=== PATIENT | female | born 1960 | race Caucasian/White ===

== ENCOUNTER 2021-01-06 16:03 | Outpatient (CLI) | payer OTHER, SELFPAY ==
--- NOTE | ~2021-01-06 | MM_ITS ---
EXAMINATION: MM screening [facility] BI w ethel HISTORY: Screening mammogram TECHNIQUE: Craniocaudal and mediolateral oblique 3-D tomosynthesis images were obtained and synthetic 2-D images were generated. CAD analysis was submitted and interpreted. COMPARISON: 04/24/2013, 06/01/2011 bilateral digital screening mammogram examinations BREAST PARENCHYMAL COMPOSITION: There are scattered areas of fibroglandular density. FINDINGS: There is asymmetry in the subareolar area of the right breast. Diagnostic right mammogram a nd right breast ultrasound examination are recommended. Otherwise there is no evidence of suspicious mass, calcification, or architectural distortion to sugg est malignancy in either breast. There has been no other suspicious interval change. IMPRESSION: 1. Right subareolar asymmetry 2. Diagnostic right mammogram and right breast ultrasound examination are recommended. BI-RADS Category 0: Incomplete: Needs additional imaging evaluation. Reviewed, dictated and finalized at location A. IMPRESSION: 1. Right subareolar asymmetry 2. Diagnostic right mammogram and right breast ultrasound examination are recom mended. BI-RADS Category 0: Incomplete: Needs additional imaging evaluation.
== END 2021-01-06 16:04 | disposition home or self-care (01) ==
LOC: ANHIMG 16:06
PROVIDERS: PCP Family Medicine; Visit Provider Family Medicine
DX: Z12.31 Encounter for screening mammogram for malignant neoplasm of breast (principal); R92.8 Other abnormal and inconclusive findings on diagnostic imaging of breast
CPT/HCPCS: 77063; 77067

== ENCOUNTER 2021-02-05 11:57 | Outpatient (CLI) | payer OTHER, SELFPAY ==
--- NOTE | ~2021-02-05 | MMUS_ITS ---
EXAMINATION: MM diagnostic mammo unilat RT, US breast RT complete HISTORY: Right subareolar mammographic asymmetry TECHNIQUE: Additional 3-D tomosynthesis images of the right breast were performed and synthetic 2-D i mages were generated. CAD analysis was submitted and interpreted. High resolution complete right huyen st ultrasound was performed. COMPARISON: 01/06/2021, 04/24/2013 bilateral digital screening mammogram FINDINGS: MAMMOGRAPHIC FINDINGS: No suspicious mass or architectural distortion is evident. No significant new or developing density s gustavo 04/24/2013 is detected. ULTRASOUND: No suspicious mass or shadowing is evident. IMPRESSION: 1. No mammographic evidence of malignancy 2. Routine mammographic screening BI-RADS Category 1: Negative Reviewed, dictated and finalized at location A. IMPRESSION: 1. No mammographic evidence of malignancy 2. Routine mammographic screening BI-RADS Category 1: Negative
== END 2021-02-05 11:58 | disposition home or self-care (01) ==
LOC: ANHIMG 11:59
PROVIDERS: PCP Family Medicine; Visit Provider Family Medicine
DX: R92.8 Other abnormal and inconclusive findings on diagnostic imaging of breast (principal)
CPT/HCPCS: 76641; 77065

== ENCOUNTER → 2021-10-15 16:14 | Outpatient (CLI) | payer OTHER, SELFPAY ==
--- NOTE | ~2021-10-15 | US_ITS ---
US soft tissue head and neck INDICATION: Palpable thyroid nodule TECHNIQUE: Real-time sonographic images of the thyroid gland were obtained. COMPARISON: No prior studies for comparison. FINDINGS: The right thyroid lobe measures 5.5 x 1.8 x 1.7 cm. The left thyroid lobe measures 5.5 x 2 .9 x 1.8 cm. In the area of palpable concern in the left neck there is a 3.2 x 2.5 x 2.4 cm mostly so lid hypoechoic mass which is wider than tall with smooth margins and no definite calcifications, pj gory TR 4. Normal vascular flow is present. IMPRESSION: 1. Solid left thyroid mass measuring up to 3.2 cm. Ultrasound-guided fine-needle aspiration biopsy r ecommended. Reviewed, dictated and finalized at location A. A PROCESSOR IMPRESSION: 1. Solid left thyroid mass measuring up to 3.2 cm. Ultrasound-guided fine-need le aspiration biopsy recommended.
== END ==
PROVIDERS: PCP Family Medicine; Visit Provider Family Medicine
DX: R22.1 Localized swelling, mass and lump, neck (principal); E07.9 Disorder of thyroid, unspecified
CPT/HCPCS: 76536

== ENCOUNTER 2021-12-13 14:15 | Emergency (ER) | payer OTHER, SELFPAY ==
--- NOTE | ~2021-12-13 | XR_ITS ---
EXAM: XR forearm LT 2V HISTORY: dog bite, LACERATION/WOUND MID FOREARM COMPARISON: None available FINDINGS: Decreased mineralization. No fracture or dislocation. No lytic or blastic lesion. Joint sp aces maintained. No erosion or periosteal change. Soft tissue defect at the anterolateral mid forearm . IMPRESSION: No acute osseous finding in the left forearm. Reviewed, dictated and finalized at location K.
[2021-12-13 14:16] VITALS: BP 143/90; PULSE 98; RESP 16; TEMP 36.6; O2SAT 97
--- NOTE | 2021-12-13 16:24 | ED.ANIMALBIT ---
HPI - Animal Bite General Chief Complaint: Animal Bite Stated Complaint: Dog Bite Time Seen by Provider: 12/13/21 15:12 Source: patient Mode of arrival: ambulatory Limitations: no limitations History of Present Illness HPI narrative: This is a 61 year old female that presents to the ER for dog bite to the left forearm sustained just prior to arrival. Reports she was walking on the trail when she was suddenly bit by another women's dog. Reports she sustained a laceration to the left forearm. Reports bleeding and pain. She is up to date on tetanus. The dog is also up to date on it's vaccinations. Denies decreased ROM or numbness. Related Data Home Medications Medication Instructions Recorded Confirmed levonorgestrel 20 mcg/24 hours (7 INTRAUTERINE 10/07/21 10/07/21 yrs) 52 mg intrauterine device Allergies Allergy/AdvReac Type Severity Reaction Status Date / Time iodine Allergy Unknown contrast Verified 12/13/21 14:29 nitrofurantoin Allergy Unknown allergic Verified 12/13/21 14:29 Penicillins Allergy Unknown Skin Verified 12/13/21 14:29 Reaction phenazopyridine Allergy Unknown allergic Verified 12/13/21 14:29 Sulfa (Sulfonamide Allergy Unknown Nausea Verified 12/13/21 14:29 Antibiotics) sulfamethizole Allergy Unknown Nausea Verified 12/13/21 14:29 sulfanilamide Allergy Unknown Unknown Verified 12/13/21 14:29 Review of Systems Review of Systems: CONSTITUTIONAL: Denies fever SKIN: Reports laceration NEUROLOGIC: Denies numbness All systems reviewed & are unremarkable except as noted in HPI and below PMFSH Past Medical History Medical History Herpes zoster without complication Kidney stone Solitary lung nodule Family History Family History Father Diabetes mellitus Family history of cardiovascular disease Family history of emphysema Mother Family history of malignant neoplasm of uterus Father Hypertension Family history of diabetes mellitus in first degree relative Family history of emphysema Family history of heart disease in male family member before age 55 Sibling Hypertension Mother Family history of malignant neoplasm of uterus Social History Social History Alcohol intake: current Exam Narrative: GENERAL: Well-appearing, well-nourished, and in no acute distress. HEAD: Normocephalic, atraumatic. EYES: EOMI. EXTREMITIES: Normal range of motion. No edema. Left forearm with 4cm linear laceration into subcutaneous tissue. Also with two additional 1cm puncture wounds SKIN: Warm, dry, no rash. NEURO: No focal deficits. Alert and oriented x3. PSYCH: Normal mood and affect Course Vital Signs Vital signs: Vital Signs Temperature 97.9 F 12/13/21 14:16 Pulse Rate 98 12/13/21 14:16 Respiratory Rate 16 12/13/21 14:16 Blood Pressure 143/90 H 12/13/21 14:16 Pulse Oximetry 97 12/13/21 14:16 Temperature 97.9 F 12/13/21 14:16 Pulse Rate 98 12/13/21 14:16 Respiratory Rate 16 12/13/21 14:16 Blood Pressure 143/90 H 12/13/21 14:16 Pulse Oximetry 97 12/13/21 14:16 Procedures Laceration Laceration 1: Date: 12/13/21 Time: 17:39 Site: upper extremity Side (If applicable): left Size (cm): 4 Description: linear Depth: simple, single layer Pre-repair: irrigated extensively ====== Skin Level ====== Skin layer closed with: steri strips ====== Subcutaneous Layer ====== ====== Muscle Layer ====== ====== Tendon Layer ====== MDM - Animal Bite MDM Narrative Medical decision making narrative: Patient presents to the emergency department after a dog bite to the left forearm sustained just prior to arrival. Her wound was thoroughly irrigated and puncture wounds were covered with antibiotic ointment and bandag
[2021-12-13] MEDS: DOXYCYCLINE HYCLATE 100 MG TABLET PO (17:42)
[2021-12-13] MEDS: CLINDAMYCIN HCL 150 MG CAP 300 MG PO (17:42)
== END 2021-12-13 17:52 | disposition home or self-care (01) ==
PROVIDERS: Emergency Provider Emergency Medicine; PCP Family Medicine
DX: S51.852A Open bite of left forearm, initial encounter (principal); Z88.0 Allergy status to penicillin; Z88.2 Allergy status to sulfonamides; Z91.041 Radiographic dye allergy status; Z87.442 Personal history of urinary calculi; W54.0XXA Bitten by dog, initial encounter
CPT/HCPCS: 73090; 99283; A9270

== ENCOUNTER → 2022-10-02 10:51 | Outpatient (CLI) | payer OTHER, SELFPAY ==
--- NOTE | ~2022-10-02 | US_ITS ---
US thyroid INDICATION: Thyroid nodule follow-up. Reported interval benign fine-needle aspiration biopsy. TECHNIQUE: Real-time sonographic images of the thyroid gland were obtained. COMPARISON: 10/15/2021 FINDINGS: The right thyroid lobe measures 5.2 x 1.9 x 1.7 cm. The left thyroid lobe measures 5.2 x 3 .2 x 3.1 cm. In the left lobe there is a complex thyroid mass measuring 3.1 x 3 x 2.7 cm which is hadley ost completely solid, isoechoic, wider than tall, smoothly marginated without internal calcifications , TR 3. No other discrete masses are identified. IMPRESSION: 1. No significant change to complex left thyroid mass measuring up to 3.1 cm maximum dimension. This was reportedly recently biopsied. Biopsy proven benign. Consider follow-up ultrasound in 12 months. Reviewed, dictated and finalized at location A. ADVISER IMPRESSION: 1. No significant change to complex left thyroid mass measuring up to 3.1 cm m aximum dimension. This was reportedly recently biopsied. Biopsy proven benign. Consider follow-up ultrasound in 12 months.
== END ==
PROVIDERS: PCP Family Medicine; Visit Provider Otolaryngology
DX: E04.1 Nontoxic single thyroid nodule (principal)
CPT/HCPCS: 76536

== ENCOUNTER 2022-12-06 07:01 | Day surgery (SDC) | payer OTHER, SELFPAY ==
[2022-10-22 14:51] VITALS: BMI 29.7
[2022-11-22 10:22] VITALS: BMI 27.6
[2022-12-06 07:20] VITALS: BP 123/69; PULSE 64; RESP 16; TEMP 36.9; O2SAT 100
[2022-12-06] MEDS: LACTATED RINGERS 1,000 ML 150 ML IV CONT (07:47)
--- NOTE | 2022-12-06 07:54 | PM.HPGS ---
History of Present Illness History of Present Illness Consent: Risks, benefits, and alternatives have been discussed and questions answered. Patient agrees to proceed with procedure. Chief complaint: Neoplasm Screening Narrative: Blaine Damon is a 62 year old female Presents for screening colonoscopy. Patient's current weight appetite and bowel movements are normal. She denies abdominal pain. Patient has had no bleeding. Family history is noncontributory. Review of Systems Review of Systems: Review of systems noncontributory. [facility] Past Medical History Medical History Herpes zoster without complication Hx of nephrolithotomy with removal of calculi Kidney stone Solitary lung nodule Surgical History Surgical History Hx of cholecystectomy Family History Family History Father Diabetes mellitus Family history of cardiovascular disease Family history of emphysema Mother Family history of malignant neoplasm of uterus Father Hypertension Family history of diabetes mellitus in first degree relative Family history of emphysema Family history of heart disease in male family member before age 55 Sibling Hypertension Mother Family history of malignant neoplasm of uterus Social History Social History Smoking status: Never smoker Alcohol intake: current Drinks per week: 2 Substance use: never Substance use type: does not use Lack of Transportation: No Lack of Food: Never True Current Housing: I Have Housing Concerned About Future Housing: No Difficulty Paying Gas/Electric Bills: No Difficulty Paying for Meds: No Currently Unemployed: No Education: High School Diploma/GED Difficulty w/ Childcare or Family Care: No Living arrangements: with family Spiritual care concerns: No Meds Home Medications and Allergies Home Medications Medication Instructions Recorded Confirmed Type sodium,potassium,mag sulfates 17.5 See Rx Instructions PO .COMPLEX 10/22/22 12/06/22 Rx gram-3.13 gram-1.6 gram oral soln #354 mL (Suprep Bowel Prep Kit) Allergies Allergy/AdvReac Type Severity Reaction Status Date / Time iodine Allergy Unknown Hives Verified 12/06/22 07:43 Penicillins Allergy Unknown Skin Verified 12/06/22 07:43 Reaction nitrofurantoin AdvReac Unknown Nausea Verified 12/06/22 07:43 phenazopyridine AdvReac Unknown Nausea Verified 12/06/22 07:43 Sulfa (Sulfonamide AdvReac Unknown Nausea Verified 12/06/22 07:43 Antibiotics) sulfamethizole AdvReac Unknown Nausea Verified 12/06/22 07:43 sulfanilamide AdvReac Unknown Nausea Verified 12/06/22 07:43 Vital Signs Vital Signs - 24 hr 12/06/22 07:20 Temperature 98.4 F Pulse Rate 64 Respiratory Rate 16 Blood Pressure 123/69 Pulse Oximetry 100 Oxygen Delivery Room Air Exam Narrative: Physical exam reveals patient be alert. Vital signs stable. HEENT exam is unremarkable. Patient is anicteric. Lungs are clear to auscultation and percussion. Heart is without murmur or extra sounds. Abdomen bowel sounds are present soft nontender with no organomegaly. Digital external rectal exam is normal. Assessment and Plan Assessment and plan (1) Colon cancer screening: Code(s): Z12.11 - Encounter for screening for malignant neoplasm of colon Status: Acute Assessment and Plan: Patient presents for screening colonoscopy. She appears to be at average risk for colon polyps. Further recommendations may be given after endoscopy.
--- NOTE | 2022-12-06 08:11 | WPDANESEPPF ---
Anes - Initial Pre Proc Eval Procedure: Operation Date: 12/06/22 08:30 Proposed Procedures p Screening Colonoscopy - Santaigo Mccray MD Date/Time: 12/06/22 08:11 Surgeon: Santiago Mccray MD Pre Op Diagnosis: Neoplasm Screening Patient Data Age: 62 Gender: F Height: 1.7 m Weight: 80 kg Last Vital Signs Temp 36.9 C 12/06/22 07:20 Pulse 64 12/06/22 07:20 Resp 16 12/06/22 07:20 BP 123/69 12/06/22 07:20 Pulse Ox 100 12/06/22 07:20 O2 Del Method Room Air 12/06/22 07:20 Allergies Allergy/AdvReac Type Severity Reaction Status Date / Time iodine Allergy Unknown Hives Verified 12/06/22 07:43 Penicillins Allergy Unknown Skin Verified 12/06/22 07:43 Reaction nitrofurantoin AdvReac Unknown Nausea Verified 12/06/22 07:43 phenazopyridine AdvReac Unknown Nausea Verified 12/06/22 07:43 Sulfa (Sulfonamide AdvReac Unknown Nausea Verified 12/06/22 07:43 Antibiotics) sulfamethizole AdvReac Unknown Nausea Verified 12/06/22 07:43 sulfanilamide AdvReac Unknown Nausea Verified 12/06/22 07:43 Home Medications Medication Instructions Recorded Confirmed Type sodium,potassium,mag sulfates 17.5 See Rx Instructions PO .COMPLEX 10/22/22 12/06/22 Rx gram-3.13 gram-1.6 gram oral soln #354 mL (Suprep Bowel Prep Kit) Patient hx anesthesia problems: none Family hx anesthesia problems: none Results Review: All pre-operative results and documents have been reviewed as part of the pre-operative evaluation. [facility] Past Medical History Medical History Herpes zoster without complication Hx of nephrolithotomy with removal of calculi Kidney stone Solitary lung nodule Surgical History Surgical History Hx of cholecystectomy Family History Family History Father Diabetes mellitus Family history of cardiovascular disease Family history of emphysema Mother Family history of malignant neoplasm of uterus Father Hypertension Family history of diabetes mellitus in first degree relative Family history of emphysema Family history of heart disease in male family member before age 55 Sibling Hypertension Mother Family history of malignant neoplasm of uterus Social History Social History Smoking status: Never smoker Alcohol intake: current Drinks per week: 2 Substance use: never Substance use type: does not use Lack of Transportation: No Lack of Food: Never True Current Housing: I Have Housing Concerned About Future Housing: No Difficulty Paying Gas/Electric Bills: No Difficulty Paying for Meds: No Currently Unemployed: No Education: High School Diploma/GED Difficulty w/ Childcare or Family Care: No Living arrangements: with family Spiritual care concerns: No Anes - Eval Final PreProcedure Day of Procedure 12/06/22 08:11 Patient weight: overweight Heart: regular rate and rhythm Lungs: clear to auscultation Airway: Mallampati scale class II Neurological: alert and oriented Last oral intake: >/= 8 hours ASA classification: II Emergent: no Anesthetic plan: proceed Anesthesia type and monitoring: general GIVS and standard monitoring Results Review: All pre-operative results and documents have been reviewed as part of the pre-operative evaluation. Informed Consent: The patient's anesthetic plan and its attendant risks and benefits were discussed with the patient/family/POA. Questions were solicited and answers provided to the satisfaction of the patient/family/POA.
[2022-12-06 08:50] VITALS: BP 95/51; PULSE 60; RESP 18; O2SAT 99
[2022-12-06 09:00] VITALS: BP 107/66; PULSE 57; RESP 20; O2SAT 98
--- NOTE | 2022-12-06 09:04 | WPDANESPN ---
Anes - Prog Note Post-Op Date/Time: 12/06/22 09:04 Cardiovascular status: normal Respiratory status: normal Airway patency: baseline Mental status: baseline Post-Op hydration status: normal Vital Signs: Last Vital Signs Temp 36.9 C 12/06/22 07:20 Pulse 57 L 12/06/22 09:00 Resp 20 12/06/22 09:00 BP 107/66 12/06/22 09:00 Pulse Ox 98 12/06/22 09:00 O2 Del Method Room Air 12/06/22 09:00 Pain Score (VAS): 0/10 I/O: Intake & Output 12/05/22 12/06/22 12/06/22 23:59 07:59 15:59 Intake Total 500 Balance 500 Patient Feedback: Patient satisfied with anesthetic care.
[2022-12-06 09:10] VITALS: BP 124/68; PULSE 58; RESP 20; O2SAT 100
== END 2022-12-06 09:19 | disposition home or self-care (01) ==
PROVIDERS: PCP Family Medicine; Visit Provider Internal Medicine Gastroenterology
PROC: 0DJD8ZZ Inspection of Lower Intestinal Tract, Via Natural or Artificial Opening Endoscopic (ICD-10-PCS; CPT 45378; principal; 2022-12-06 08:30)
DX: Z12.11 Encounter for screening for malignant neoplasm of colon (principal)
CPT/HCPCS: 45378

== ENCOUNTER 2022-12-12 09:44 | Emergency (ER) | payer OTHER, SELFPAY ==
--- NOTE | ~2022-12-12 | XR_ITS ---
EXAMINATION: XR humerus RT, XR elbow RT min 3V DATE: 12/12/2022 10:47 INDICATION: Right elbow swelling and limited range of motion post fall TECHNIQUE: 1. Internal and axillary rotated views of the right humerus were obtained. 2. AP, lateral and left and right oblique views of the right elbow were obtained. COMPARISON: None. FINDINGS: Intra-articular fracture at the right radial head with slight depression of a fragment comprising jennifer roximately 40% of the articular surface area with up to 1 mm step-off at the articular surface. There is an associated right elbow joint effusion. No other fractures identified. Normal alignment at the right shoulder. 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 Visualized porti on of the right lung is clear. IMPRESSION: 1. Minimally depressed intra-articular fracture at the right radial head with associated elbow joint effusion. Reviewed, dictated and finalized at location A. IMPRESSION: 1. Minimally depressed intra-articular fracture at the right radial head with a ssociated elbow joint effusion.
[2022-12-12 10:14] VITALS: BP 122/70; PULSE 67; RESP 16; TEMP 36.6; O2SAT 97
--- NOTE | 2022-12-12 12:15 | ED.UPPEXIN ---
HPI - Extremity Injury (Upper) General Chief Complaint: Extremity Injury, Upper Stated Complaint: fall on right arm yest Time Seen by Provider: 12/12/22 11:02 Source: patient Mode of arrival: ambulatory Limitations: no limitations History of Present Illness HPI narrative: Patient is a 62-year-old female who presents to the ED with report of right elbow pain. Patient reports she was playing soccer with her 3-year-old grandson yesterday when she tripped and fell. She reached both arms out to try to catch herself. She complains of pain to her right elbow and distal upper arm since then. She reports limited range of motion. Denies numbness or tingling. Denies pain elsewhere. Denies head injury or LOC. Related Data Allergies Allergy/AdvReac Type Severity Reaction Status Date / Time iodine Allergy Unknown Hives Verified 12/12/22 10:16 Penicillins Allergy Unknown Skin Verified 12/12/22 10:16 Reaction nitrofurantoin AdvReac Unknown Nausea Verified 12/12/22 10:16 phenazopyridine AdvReac Unknown Nausea Verified 12/12/22 10:16 Sulfa (Sulfonamide AdvReac Unknown Nausea Verified 12/12/22 10:16 Antibiotics) sulfamethizole AdvReac Unknown Nausea Verified 12/12/22 10:16 sulfanilamide AdvReac Unknown Nausea Verified 12/12/22 10:16 Review of Systems Review of Systems: CONSTITUTIONAL: Denies fever, chills, or sweats. SKIN: Denies rash or itching. MUSCULOSKELETAL: See HPI. NEUROLOGIC: See HPI. All systems reviewed & are unremarkable except as noted in HPI and below PMFSH Past Medical History Medical History Herpes zoster without complication Hx of nephrolithotomy with removal of calculi Kidney stone Solitary lung nodule Surgical History Surgical History Hx of cholecystectomy Family History Family History Father Diabetes mellitus Family history of cardiovascular disease Family history of emphysema Mother Family history of malignant neoplasm of uterus Father Hypertension Family history of diabetes mellitus in first degree relative Family history of emphysema Family history of heart disease in male family member before age 55 Sibling Hypertension Mother Family history of malignant neoplasm of uterus Social History Social History Smoking status: Never smoker Alcohol intake: current Drinks per week: 2 Substance use: never Substance use type: does not use Lack of Transportation: No Lack of Food: Never True Current Housing: I Have Housing Concerned About Future Housing: No Difficulty Paying Gas/Electric Bills: No Difficulty Paying for Meds: No Currently Unemployed: No Education: High School Diploma/GED Difficulty w/ Childcare or Family Care: No Living arrangements: with family Spiritual care concerns: No Exam Narrative: GENERAL: Well appearing, well-nourished, non-toxic, in no acute distress. HEAD: Normocephalic, atraumatic. NECK: Supple. No adenopathy, no masses. RESPIRATORY: Airway patent, respirations nonlabored. Clear to auscultation bilaterally, no rales, rhonchi, wheezing. CARDIOVASCULAR: Regular rate and rhythm without murmurs, rubs, or gallops. Radial pulses 2+ and equal bilaterally. MUSCULOSKELETAL: Limited flexion, extension, supination/pronation of right elbow due to pain. Tenderness to palpation over distal humerus, medial right elbow joint. Moderate swelling noted to R elbow joint. Small area of ecchymosis to thenar eminence region of left hand, nontender. No tenderness throughout left hand or wrist, no snuffbox tenderness. SKIN: Warm, dry, normal color. No rashes. NEURO: A&O X3. Speech clear. Cranial nerves II-XII grossly intact. Steady gait. No ataxic movements. PSYCHIATRIC: Appropriate mood and affect. Normal interaction.
[2022-12-12] MEDS: HYDROcodone/acetaminophen (*CRX) 5-325 MG TABLET 1 TAB PO (12:31)
[2022-12-12 13:17] VITALS: BP 134/80; PULSE 84; RESP 16; TEMP 36.6; O2SAT 100
== END 2022-12-12 13:19 | disposition home or self-care (01) ==
PROVIDERS: Emergency Provider Physician Assistant; PCP Family Medicine
DX: S52.124A Nondisplaced fracture of head of right radius, initial encounter for closed fracture (principal); M25.421 Effusion, right elbow; Z87.442 Personal history of urinary calculi; R91.1 Solitary pulmonary nodule; W01.0XXA Fall on same level from slipping, tripping and stumbling without subsequent striking against object, initial encounter
CPT/HCPCS: 29105; 73060; 73080; 99284; A4565; A9270

== ENCOUNTER 2022-12-21 14:44 | Outpatient (CLI) | payer OTHER, SELFPAY ==
--- NOTE | ~2022-12-21 | DEXA_ITS ---
Bone Density Report Name: SAMSON ORO Age: 62 Sex: Female Ethnicity: White Date of : 1960 Indication: postmenopausal; screening for osteoporosis; height loss; Referring Provider: JAMEEL VALLEJO Study: Bone densitometry was performed. Exam Date: December 21, 2022 Accession number: [id number] Bone Density: Region BMD T-score Z-score Classification AP Spine(L1-L4) 0.866 -1.6 -0.2 Osteopenia Femoral Neck (Left) 0.618 -2.1 -0.7 Osteopenia Total Hip (Left) 0.759 -1.5 -0.5 Osteopenia Femoral Neck (Right) 0.586 -2.4 -1.0 Osteopenia Total Hip (Right) 0.719 -1.8 -0.8 Osteopenia Total Hip Mean 0.739 -1.7 -0.7 Osteopenia World Health Organization criteria for BMD impression classify patients as: Normal (T-score at or above -1.0), Osteopenia (T-score between -1.0 and -2.5), or Osteoporosis (T-score at or below -2.5). 10-year Fracture Risk(1): Major Osteoporotic Fracture 11% Hip Fracture 1.7% Reported Risk Factors: [place] (), Neck BMD=0.586, BMI=31.0 (1) FRAX(R) Version 3.08. Fracture probability calculated for an untreated patient. Fracture probability may be lower if the patient has received treatment. Clinical Information Provided by Patient: Patient maximum height was 67.5 Menopause Age: 52 Drinks caffeinated beverages Onset of menses at age 13 Number of children 2 Impression: The patient has low bone mass, based on the Right Femoral Neck T-score. The patient has an estimated ten-year risk of hip fracture of 1.7% and an estimated ten-year risk of major fracture of 11%, based on the WHO FRAX algorithm. Discussion: BONE DENSITY IS LOW AT ONE OR MORE SKELETAL SITES. This patient's lowest T-score is low at one or more skeletal sites. It meets the World Health Organization's (WHO) criteria for ?low bone mass? (T-score between -1.0 and -2.5). The patient's 10-year risk of fracture as calculated by FRAX is less than the threshold where pharmacological therapy is recommended by the National Osteoporosis Foundation (NOF). However, all treatment decisions require clinical judgment and consideration of individual patient factors, including patient preferences, comorbidities, previous drug use, risk factors not captured in the FRAX model (e.g., frailty, falls, vitamin D deficiency, increased bone turnover, interval significant decline in bone density) and possible under or overestimation of fracture risk by FRAX. The patient should follow a healthful lifestyle (good nutrition with adequate calcium and vitamin D, and appropriate weight-bearing exercise). Follow-Up: Consider repeating this study in 2 to 3 years to reassess this patient's status, or sooner if there is some new clinical indication. Reported by: [facility] on 12/21/2022 3:07:00 PM.
--- NOTE | ~2022-12-21 | MM_ITS ---
EXAMINATION: MM screening [facility] BI w ethel HISTORY: Screening mammogram TECHNIQUE: Craniocaudal and mediolateral oblique 3-D tomosynthesis images were obtained and synthetic 2-D images were generated. CAD analysis was submitted and interpreted. COMPARISON: 02/05/2021, 01/06/2021, 04/24/2013 BREAST PARENCHYMAL COMPOSITION: There are scattered areas of fibroglandular density. FINDINGS: No suspicious mass, calcification, or architectural distortion are identified in either sharlene ast to suggest malignancy. There has been no suspicious interval change. IMPRESSION: 1. No mammographic evidence of malignancy. 2. Recommend routine screening mammography in one year. BI-RADS Category 1: Negative Reviewed, dictated and finalized at location A.
== END 2022-12-21 14:45 | disposition home or self-care (01) ==
LOC: ANHIMG 14:47
PROVIDERS: PCP Family Medicine; Visit Provider Family Medicine
DX: Z12.31 Encounter for screening mammogram for malignant neoplasm of breast (principal); Z78.0 Asymptomatic menopausal state; M85.89 Other specified disorders of bone density and structure, multiple sites
CPT/HCPCS: 77063; 77067; 77080

== ENCOUNTER → 2023-07-26 10:23 | Outpatient (CLI) | payer OTHER, SELFPAY ==
--- NOTE | ~2023-07-26 | US_ITS ---
Renal-Bladder ultrasound Clinical History: Abdominal pain Technique: Real-time sonographic imaging of the kidneys and urinary bladder was performed. Findings: The right kidney measures 9.7 cm in length and the left kidney measures 9.6 cm. There is no hydronephrosis or renal calculus identified. Renal cortical echogenicity is within normal limits. No renal mass lesion is identified. The urinary bladder is moderately distended at the time of this exam. No intraluminal echoes are iden tified. No abnormal wall thickening is seen. Impression: Unremarkable ultrasound of the kidneys and urinary bladder. Reviewed, dictated and finalized at location M. K OUT CASHIER Impression: Unremarkable ultrasound of the kidneys and urinary bladder.
== END ==
PROVIDERS: PCP Nurse Practitioner Family; Visit Provider Nurse Practitioner Family
DX: R10.9 Unspecified abdominal pain (principal)
CPT/HCPCS: 76775

== ENCOUNTER → 2023-10-04 07:54 | Outpatient (CLI) | payer OTHER, SELFPAY ==
--- NOTE | ~2023-10-04 | US_ITS ---
EXAMINATION: US thyroid DATE: 10/04/2023 08:11 INDICATION: Thyroid nodule. TECHNIQUE: Multiple ultrasound images of the thyroid were obtained. COMPARISON: Thyroid ultrasound 10/02/2022, 10/15/2021 FINDINGS: The right thyroid lobe measures 6.6 x 1.5 x 1.7 cm. The left thyroid lobe measures 6.0 x 3.3 x 2.7 c m. In the left thyroid lobe, there is a 4.1 cm solid, hypoechoic, wider than tall nodule with smooth margin without echogenic foci (TI-RADS TR4). In the right thyroid lobe, there is a 3 mm nodule. IMPRESSION: 1. Left thyroid nodule, stable from 10/15/2021. An outside biopsy was reportedly benign. Reviewed, dictated and finalized at location E. N EXPORT COORDINATOR
== END ==
PROVIDERS: PCP Family Medicine; Visit Provider Otolaryngology
DX: E04.1 Nontoxic single thyroid nodule (principal)
CPT/HCPCS: 76536

== ENCOUNTER 2024-06-27 08:20 | Outpatient (CLI) | payer OTHER, SELFPAY ==
--- NOTE | ~2024-06-27 | MM_ITS ---
EXAMINATION: MM screening kathy BI w ethel HISTORY: Screening mammogram TECHNIQUE: Craniocaudal and mediolateral oblique 3-D tomosynthesis images were obtained and synthetic 2-D images were generated. CAD analysis was submitted and interpreted. COMPARISON: 12/21/2022, 01/06/2021 BREAST PARENCHYMAL COMPOSITION:Not Dense. There are scattered areas of fibroglandular density. FINDINGS: No suspicious mass, calcification, or architectural distortion are identified in either sharlene ast to suggest malignancy. There has been no suspicious interval change. IMPRESSION: No mammographic evidence of malignancy. Recommend routine screening mammography in one year. BI-RADS Category 1: Negative Reviewed, dictated and finalized at location . APEUTIC RECREATION DIRECTOR
== END 2024-06-27 08:21 | disposition home or self-care (01) ==
LOC: ANHIMG 08:22
PROVIDERS: PCP Family Medicine; Visit Provider Family Medicine
DX: Z12.31 Encounter for screening mammogram for malignant neoplasm of breast (principal)
CPT/HCPCS: 77063; 77067

== ENCOUNTER 2024-11-15 06:28 | Emergency (ER) | payer OTHER, SELFPAY ==
--- NOTE | ~2024-11-15 | XR_ITS ---
Left wrist Technique: PA, oblique, lateral, and ulnar deviation views were obtained. Clinical History: Injury Findings: There is an acute, transverse fracture the distal radius with comminution, dorsal angulatio n, and intra-articular extension. Fracture from a mildly displaced. There is posttraumatic positive u lnar variance. Suspected nondisplaced fracture of the ulnar styloid process. Soft tissues are unremar kable. Impression: Comminuted, displaced, intra-articular, dorsally angulated fracture of the distal radius. Probable nondisplaced ulnar styloid fracture. Reviewed, dictated and finalized at location . Impression: Comminuted, displaced, intra-articular, dorsally angulated fracture of the dist al radius. Probable nondisplaced ulnar styloid fracture.
--- OUTSIDE RECORDS SUMMARY | 2024-11-15 06:30 | XMS_ITS | Clinical Summary ---
Author Organization [facility] Address [address] [place] [id number] Care Team Providers Care Urologist Md Name Role Phone Etienne Banks MD Primary Care Provider [phone]- [phone] Allergies Active Allergy Reactions Criticality Noted Date Comments Iodine Unknown 11/03/2021 Penicillins Unknown 11/03/2021 Sulfa Antibiotics Unknown 11/03/2021 Medications No known medications Social History Tobacco Use Types Packs/Day Years Used Date Smoking Tobacco: Former Smokeless Tobacco: Never Comments: as teenager only Alcohol Use Standard Drinks/Week Comments Yes 0 (1 standard drink = 0.6 oz pur e alcohol) just socially Comments No Sex and Gender Information Value Date Recorded Sex Assigned at Not on file Legal Sex Female 12:21 PM CDT Gender Identity Female 11/09/2021 8:29 AM CDT Sexual Orientation Straight 11/09/2021 8: 29 AM CDT Last Filed Vital Signs Vital Sign Reading Time Taken Comments Blood Pressure - - Pulse - - Temperature - - Respiratory Rate - - Oxygen Saturation - - Inhaled Oxygen Concentration - - Weight 77.1 kg (170 lb) 11/03/2021 12:00 AM CDT Height 167.6 cm (5' 6 ) 11/03/2021 12:00 AM CDT Body Mass Index 27.44 11/03/2021 12:00 AM CDT Plan of Treatment Health Maintenance Due Date Last Done Comments Cervical Cancer Screening Pa p Smear (Age 30 to 64) Every 3 Years 1961 Colorectal Cancer Screening Colonoscopy (10 Years) 1961 Annual Physical 1964 Hepatitis C 1979 Cervical Cancer Screening Pa p with HPV Testing (Age 30 to 64) Every 5 Years 1991 Cervical Cancer Screening wi th HPV 1991 Mammogram Screening 2001 Zoster Vaccines (1 of 2) 2011 COVID-19 Vaccine (4 - 2023-2 5 season) 2024 06/28/2021, 11/12/2020, 10/18/2020 DTaP, Tdap and Td Vaccines ( 2 - Td or Tdap) 04/02/2029 04/02/2019 RSV Immunization or 60+ Years (1 - 1-dose 75+ series) 2036 Meningococcal B Vaccine Aged Out No l onger eligible based on patient's age to complete this topic Meningococcal Vaccine Aged Out No geovani nell eligible based on patient's age to complete this topic Pneumococcal Vaccine: Pediatrics (0 to 5 Years) and At-Risk Patients (6 to 64 Years) Aged Out No longer eligible b ased on patient's age to complete this topic RSV Immunizations Under 20 Months Aged Out No longer eligible b ased on patient's age to complete this topic Insurance [address] [place], [place] [address] Care Teams Urologist Md Relationship Specialty Start Date End Date Etienne Banks MD PCP - General FAMILY PRACTICE 11/09/21
[2024-11-15 06:32] VITALS: BP 137/78; PULSE 80; RESP 14; TEMP 36.4; O2SAT 97
[2024-11-15 06:33] VITALS: BP 137/78; PULSE 69; RESP 16; TEMP 36.6; O2SAT 97
--- OUTSIDE RECORDS SUMMARY | 2024-11-15 07:21 | XMS_ITS | Clinical Summary ---
Author Organization [facility] Address [address] [place] [address] Care Team Providers Care Paintless Dent Repair Technician Name Role Phone Etienne Banks MD Primary Care Provider +1- [phone] Allergies Active Allergy Reactions Criticality Noted Date [...] to complete this topic Insurance [address] [place], [place] [address] Care Teams Paintless Dent Repair Technician Relationship Specialty Start Date End Date Etienne Banks MD PCP - General FAMILY PRACTICE 11/09/21
--- NOTE | 2024-11-15 07:26 | ED_ITS ---
HPI - General Adult General Chief complaint: Extremity Injury, Upper Stated complaint: L wrist pain after fall Time Seen by Provider: 11/15/24 06:56 History of Present Illness HPI narrative: 64-year-old female presenting to the emergency department for evaluation after having a ground level fall resulting in a left wrist injury. Patient states she was walking slipped in some mud and landed on her left wrist. Patient states she was having some tightness in the left shoulder but has full range of motion of the shoulder. Patient does complain of left wrist pain patient is neurovascularly intact. Patient denies striking head denies loss conscious. Patient denies any other pain or injury. Patient had previously followed up with Dr. Sauceda. Related Data Home Medications ?Medication ?Instructions ?Recorded ?Confirmed ?Last Taken ?Type lactobacillus combination no.9 4 4,000 mmu cells PO DAILY 02/02/23 02/24/24 Unknown History billion cell capsule (Adult 50 Plus Probiotic) estradiol 0.87 gram/actuation 1 pump transdermal DAILY 08/27/24 Unknown History (0.06%) transdermal gel pump estradiol 4 mcg vaginal insert See Rx Instructions vaginal PER 08/27/24 Unknown History (Imvexxy Maintenance Pack) PKG DIR magnesium chelate, mal, threon mg PO 08/27/24 Unknown History (OptiMag Neuro) progesterone micronized 100 mg mg PO 08/27/24 Unknown History capsule Allergies Allergy/AdvReac Type Severity Reaction Status Date / Time gluten Allergy Severe rash Verified 11/15/24 06:29 iodine Allergy Unknown Hives Verified 11/15/24 06:29 Penicillins Allergy Unknown Skin Verified 11/15/24 06:29 Reaction nitrofurantoin AdvReac Unknown Nausea Verified 11/15/24 06:29 phenazopyridine AdvReac Unknown Nausea Verified 11/15/24 06:29 Sulfa (Sulfonamide AdvReac Unknown Nausea Verified 11/15/24 06:29 Antibiotics) sulfamethizole AdvReac Unknown Nausea Verified 11/15/24 06:29 sulfanilamide AdvReac Unknown Nausea Verified 11/15/24 06:29 Review of Systems Review of Systems: All systems reviewed & are unremarkable except as noted in HPI and below PMFSH Past Medical History Medical History Osteopenia Closed fracture of radial head November 2022 right elbow Hx of nephrolithotomy with removal of calculi Kidney stone Herpes zoster without complication Solitary lung nodule Surgical History Surgical History History of lithotripsy Hx of cholecystectomy Family History Family History Father Diabetes mellitus Family history of cardiovascular disease Family history of emphysema Mother Family history of malignant neoplasm of uterus Cerebrovascular accident Father Hypertension Family history of diabetes mellitus in first degree relative Family history of emphysema Family history of heart disease in male family member before age 55 Sibling Hypertension Mother Family history of malignant neoplasm of uterus Social History Social History Social History: Caffeine- rarely Smoking status: Former smoker Alcohol intake: current Drinks per week: 2 Substance use: never Substance use type: does not use Lack of Transportation: No Lack of Food: Never True Current Housing: I Have Housing Concerned About Future Housing: No Difficulty Paying Gas/Electric Bills: No Difficulty Paying for Meds: No Currently Unemployed: No Education: Trade/Vocational Certificate Difficulty w/ Childcare or Family Care: No Living arrangements: with family Occupation/Education: occupation 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 HEAD: normocephalic, atraumatic. EYES: PERRLA/EOMI, conjunctivae clear. NOSE: Normal no drainage EARS:TMS clear with good light reflex. THROAT: Pharynx clear, no exudate. NECK: Supple. No adenopathy, no masses. RESPIRATORY: Airway patent, respirations nonlabored. Clear to auscultation bilaterally, no rales, rhonchi, wheezing. CARDIOVASCULAR: Regular rate and rhythm without murmurs rubs or gallops. ABDOMINAL: Soft, nontender, nondistended, normal bowel sounds MUSCULOSKELETAL: Mild deformity of the left wrist neurovascularly intact NEURO: Alert. Cranial nerves II through XII intact. Good gait. Good coordination SKIN: Warm, dry. Normal Color Course Vital Signs Vital signs: Vital Signs Temperature 97.6 F 11/15/24 06:32 Pulse Rate 80 11/15/24 06:32 Respiratory Rate 14 11/15/24 06:32 Blood Pressure 137/78 11/15/24 06:32 Pulse Oximetry 97 11/15/24 06:32 Oxygen Delivery Room Air 11/15/24 06:32 Temperature 97.9 F 11/15/24 07:31 Pulse Rate 69 11/15/24 07:46 Respiratory Rate 16 11/15/24 07:46 Blood Pressure 138/78 11/15/24 07:46 Pulse Oximetry 98 11/15/24 07:46 Oxygen Delivery Room Air 11/15/24 06:32 Medical Decision Making MDM Narrative Medical decision making narrative: 64-year-old female presenting to the emergency department for evaluation for left wrist pain secondary to a ground level fall. Patient is neurovascularly intact. Patient was placed in a left short-arm volar fiberglass splint and provided a sling. Patient was provided medications for pain control emergency department. Patient was updated on the importance of close follow-up with Orthopedics. All questions and concerns were addressed. Differential Diagnosis Differential Diagnosis: Radius fracture, ulnar fracture, wrist dislocation, hand fracture Vital Signs Vital Signs: Vital Signs Temperature 97.6 F 11/15/24 06:32 Pulse Rate 80 11/15/24 06:32 Respiratory Rate 14 11/15/24 06:32 Blood Pressure 137/78 11/15/24 06:32 Pulse Oximetry 97 11/15/24 06:32 Oxygen Delivery Room Air 11/15/24 06:32 Temperature 97.9 F 11/15/24 07:31 Pulse Rate 69 11/15/24 07:46 Respiratory Rate 16 11/15/24 07:46 Blood Pressure 138/78 11/15/24 07:46 Pulse Oximetry 98 11/15/24 07:46 Oxygen Delivery Room Air 11/15/24 06:32 Imaging Data Radiologist's impression: Impressions Wrist X-Ray 11/15/24 07:13 Impression: Comminuted, displaced, intra-articular, dorsally angulated fracture of the distal radius. Probable nondisplaced ulnar styloid fracture. Discharge Plan Discharge Clinical Impression: Distal radial fracture Patient Disposition: Home, Self-Care Condition: Stable Instructions: Antibiotic Form, How to Use a Sling (ED), Splint Care (ED) Additional Instructions: Ibuprofen for pain control, Oglesby as needed for additional pain control. Splint care as directed. Use the sling for comfort. Have close follow-up with Orthopedics. If you have any worsening symptoms then please call or return to the emergency department. Patient Language: Upper Sorbian Prescriptions: New hydrocodone-acetaminophen 5-325 mg tablet 1 tablet PO Q12H PRN (Reason: pain) Qty: 14 0RF No Action progesterone micronized 100 mg capsule PO Imvexxy Maintenance Pack 4 mcg insert See Rx Instructions vaginal PER PKG DIR Rx Instructions: vaginal PER PKG DIR estradiol 0.87 gram/actuation gel in metered-dose pump 1 pump transdermal DAILY OptiMag Neuro 200 mg magnesium/scoop powder PO Adult 50 Plus Probiotic 4 billion cell capsule 4,000 mmu cells PO DAILY Rx Instructions: administer with a meal clobetasol 0.05 % cream 1 applic topical BID 14 Days Qty: 45 1RF ciprofloxacin HCl 250 mg tablet 250 mg PO Q12H Qty: 10 0RF Follow-up/Referrals: Mustapha Smyth MD [Physician] - Etienne Banks MD [Primary Care Provider] -
[2024-11-15 07:31] VITALS: BP 136/78; PULSE 70; RESP 16; TEMP 36.6; O2SAT 97
[2024-11-15] MEDS: IBUPROFEN 400 MG TABLET 800 MG PO (07:40)
[2024-11-15] MEDS: HYDROcodone/acetaminophen (*CRX) 7.5-325 MG TABLET 1 TAB PO (07:40)
[2024-11-15 07:46] VITALS: BP 138/78; PULSE 69; RESP 16; O2SAT 98
== END 2024-11-15 08:14 | disposition home or self-care (01) ==
PROVIDERS: Emergency Provider Emergency Medicine; PCP Family Medicine
DX: S52.502A Unspecified fracture of the lower end of left radius, initial encounter for closed fracture (principal); Z87.891 Personal history of nicotine dependence; W01.0XXA Fall on same level from slipping, tripping and stumbling without subsequent striking against object, initial encounter
CPT/HCPCS: 29125; 73110; 99284; A4565; A9270

== ENCOUNTER 2024-11-21 00:12 | Day surgery (SDC) | payer OTHER, SELFPAY ==
[2024-11-16 14:53] VITALS: BMI 29.9
--- NOTE | 2024-11-16 15:00 | PC.NURSE ---
Report to the Outpatient Waiting Room, entrance under the green pavilion located off [facility], at time _1100_ on date _[id number]_. Planned Procedure Time: _1pm_.? Time changes happen often and if your time is changed the preop area will call you the afternoon before. - You and your visitor will be asked to self-screen and do not enter if you have any COVID symptoms. Please call surgeon if you need to reschedule. - A mask is optional within the hospital at this time. Patients may have clear liquids (water, carbonated beverages, clear teas, apple juice) until 3 hours prior to surgery with a maximum of 20 ounces. - No food from midnight until time of surgery and no smoking, or chewing tobacco (or any form of nicotine). No chewing gum, candy or mints. Take only the following medications with a SIP of water on the morning of surgery: ___Hydrocodone if needed____ DO NOT STOP ANY OF YOUR OTHER PRESCRIPTION MEDICATIONS PRIOR TO SURGERY EXCEPT THE FOLLOWING Hold all vitamins and supplements for 3 days per anesthesiologist. Medications to discontinue per physician Patient says Dr Smyth asked her to hold all hormone medications to prevent blood clots. Date to take last dose Please no make-up, nail occitan, hairspray, perfume, deodorant, or body powder the day of surgery.? No jewelry (including any body piercings) or valuables the day of surgery, leave them at home.? Please take a shower or bath the night before, or the morning of, surgery with an antibacterial soap.? Wear comfortable, loose fitting clothing.? - Jewelry must be removed prior to entering the operating room.? Rings and piercings that are not removed may be cut off. - The hospital will not accept responsibility for valuables.? - Please leave all valuables, including medications, at home the day of surgery. If you are going home after surgery, a licensed gravel truck driver must drive you home.? - NO public transportation without another adult if you receive anesthesia. - We recommend that an adult stay with you for 24 hours following discharge. - We also recommend that you do not drive, make important decision, drink alcoholic beverages, or take any drugs that were not prescribed by your health care provider for at least 24 hours after your discharge time. Follow any additional instructions given to you from your surgeon. Telephone instructions given to __Robin___and asked if any additional questions and then verbalized understanding. Patient advised to call surgeon office or pre surgery nurse liaison [phone] if any additional questions.
[2024-11-21] VITALS (10 sets, daily range): BP systolic 113–151; BP diastolic 64–87; PULSE 62–83; RESP 12–18; TEMP 36.1–36.7; O2SAT 96–100; BMI 30.4
--- NOTE | ~2024-11-21 | XR_ITS ---
INTRAOPERATIVE FLUOROSCOPY: CLINICAL HISTORY: 64 years old Female; ORIF LEFT WRIST PROCEDURE COMMENTS: Limited intraoperative fluoroscopy of the left wrist was performed. CUMULATIVE DOSE: 10.8 mGy FLUOROSCOPY TIME: 5 minutes 18 seconds FINDINGS/IMPRESSION: Please refer to operative note for further details. Reviewed, dictated and finalized at location A.
--- OUTSIDE RECORDS SUMMARY | 2024-11-21 00:16 | XMS_ITS | Clinical Summary ---
Author Organization [facility] Address [address] [place] [address] Care Team Providers Care Viscose Cellar Charge Hand Name Role Phone Etienne Banks MD Primary Care Provider +1- [phone] Allergies Active Allergy Reactions Criticality Noted Date [...] to complete this topic Insurance [address] [place], [place] [address] Care Teams Viscose Cellar Charge Hand Relationship Specialty Start Date End Date Etienne Banks MD PCP - General FAMILY PRACTICE 11/09/21
--- NOTE | 2024-11-21 07:18 | WPDHPUPDATE1 ---
History and Physical Update Update Date/Time: 11/21/24 07:18 History and Physical has been reviewed, including an updated exam of the patient. There are NO changes in the patient's condition. Risks, benefits, and alternatives have been discussed and questions answered. Patient agrees to proceed with procedure.
[2024-11-21] MEDS: LACTATED RINGERS 1,000 ML 30 ML IV CONT (11:40)
[2024-11-21] MEDS: ACETAMINOPHEN 500 MG TABLET 1000 MG PO (11:45)
--- NOTE | 2024-11-21 12:05 | P.PNAN_ITS ---
Anes - Initial Pre Proc Eval Procedure: Operation Date: 11/21/24 13:00 Proposed Procedures p Open Reduction Internal Fixation Left Distal Radius - Mustapha Smyth MD Date/Time: 11/21/24 12:05 Surgeon: Mustapha Smyth MD Pre Op Diagnosis: left wrist fx Patient Data Age: 64 Gender: F Height: 1.68 m Weight: 85.4 kg Last Vital Signs Temp 36.7 C 11/21/24 11:23 Pulse 62 11/21/24 11:23 Resp 14 11/21/24 11:23 BP 113/64 11/21/24 11:23 Pulse Ox 98 11/21/24 11:23 Allergies Allergy/AdvReac Type Severity Reaction Status Date / Time gluten Allergy Severe rash Verified 11/21/24 11:17 iodine Allergy Unknown Hives Verified 11/21/24 11:17 Penicillins Allergy Unknown Skin Verified 11/21/24 11:17 Reaction nitrofurantoin AdvReac Unknown Nausea Verified 11/21/24 11:17 phenazopyridine AdvReac Unknown Nausea Verified 11/21/24 11:17 Sulfa (Sulfonamide AdvReac Unknown Nausea Verified 11/21/24 11:17 Antibiotics) sulfamethizole AdvReac Unknown Nausea Verified 11/21/24 11:17 sulfanilamide AdvReac Unknown Nausea Verified 11/21/24 11:17 Home Medications ?Medication ?Instructions ?Recorded ?Confirmed ?Type clobetasol 0.05 % topical cream 1 applic topical BID 2 weeks #45 04/05/24 11/21/24 Rx grams estradiol 0.87 gram/actuation 1 pump transdermal DAILY 08/27/24 11/21/24 History (0.06%) transdermal gel pump estradiol 4 mcg vaginal insert See Rx Instructions vaginal PER 08/27/24 11/21/24 History (Imvexxy Maintenance Pack) PKG DIR magnesium chelate, mal, threon 500 mg PO HS 08/27/24 11/21/24 History (OptiMag Neuro) progesterone micronized 100 mg 100 mg PO QPM 08/27/24 11/21/24 History capsule oxycodone-acetaminophen 5 mg-325 1 - 2 tablet PO Q6H PRN pain #40 11/21/24 Rx mg tablet (Percocet) tabs Patient hx anesthesia problems: none Family hx anesthesia problems: none Results Review: All pre-operative results and documents have been reviewed as part of the pre- operative evaluation. [facility] Past Medical History Medical History Osteopenia Closed fracture of radial head November 2022 right elbow Hx of nephrolithotomy with removal of calculi Kidney stone Herpes zoster without complication Solitary lung nodule Surgical History Surgical History History of lithotripsy Hx of cholecystectomy Family History Family History Father Diabetes mellitus Family history of cardiovascular disease Family history of emphysema Mother Family history of malignant neoplasm of uterus Cerebrovascular accident Father Hypertension Family history of diabetes mellitus in first degree relative Family history of emphysema Family history of heart disease in male family member before age 55 Sibling Hypertension Mother Family history of malignant neoplasm of uterus Social History Social History Social History: Caffeine- rarely Smoking status: Former smoker Alcohol intake: current Drinks per week: 2 Substance use: never Substance use type: does not use Lack of Transportation: No Lack of Food: Never True Current Housing: I Have Housing Concerned About Future Housing: No Difficulty Paying Gas/Electric Bills: No Difficulty Paying for Meds: No Currently Unemployed: No Education: Trade/Vocational Certificate Difficulty w/ Childcare or Family Care: No Living arrangements: with family Occupation/Education: occupation 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 Informed Consent: The patient's anesthetic plan and its attendant risks and benefits were discussed with the patient/family/POA. Questions were solicited and answers provided to the satisfaction of the patient/family/POA.
[2024-11-21] MEDS: ceFAZolin 2 GM/D5W 50 ML 2 GM/50 ML BAG IVPB (12:10)
[2024-11-21] MEDS: BUPivacaine HCL 0.5% PF 30 ML VIAL INFILTRATE (13:04)
--- NOTE | 2024-11-21 14:14 | W.PM.PROC2 ---
Procedure Note - Detailed Date of Procedure 11/21/24 Pre-op Diagnosis LEFT DISTAL RADIUS FRACTURE Post-op Diagnosis Same Procedure Performed ORIF LEFT DISTAL RADIUS FRACTURE Surgeon Mustapha Smyth MD Anesthesia General Description of Procedure THE LEFT UPPER EXTREMITY WAS PREPPED AND DRAPED IN THE STERILE FASHION. A STANDARD HENRYS APPROACH WAS USED TO THE VOLAR WRIST. DISSECTION THROUGH THE SKIN AND SUBCUTANEOUS TISSUE WAS PREFORMED. THE FCR TENDON WAS IDENTIFIED. THE RADIAL ARTERY WAS IDENTIFIED AND RETRACTED. THE THE FLEXOR POLLICIS AND THE COMMON FLEXOR TENDONS WERE IDENTIFIED AND RETRACTED. THE PRONATOR QUADRATUS WAS IDENTIFIED AND INCISED EXPOSING THE FRACTURE. IT WAS HIGHLY COMMINUTED. A TRIAL REDUCTION WAS PREFORMED AND FIXED WITH A K WIRE. NEXT A BIOMET DISTAL RADIUS LOCKING PLATE WAS PLACED BRIDGING THE FRACTURE FRAGMENTS. SCREWS WERE PLACED DISTALLY AND PROXIMALLY. THE DISTAL SCREWS WERE IMAGED AND FOUND TO BE EXTRA ARTICULAR. C ARM IMAGES WERE PREFORMED AND HARDWARE AND FRACTURE FRAGMENTS WERE IN GOOD POSITION. THE TOURNIQUET WAS DEFLATED AND THE BLEEDERS WERE CAUTERIZED. THE FASCIA AND SUB CUTANEOUS LAYERS WERE APPROXIMATED WITH 3-0 VICRYL. THE SKIN WAS CLOSED WITH 3-0 STRATAFIX AND DERMABOND. STERILE DRESSING AND SPLINT WAS APPLIED. PATIENT WAS EXTUBATED. Estimated Blood Loss 20 Complications No immediate complications Condition Stable Disposition PACU
[2024-11-21] MEDS: fentaNYL CITRATE INJ (*CRX) 100 MCG/2 ML VIAL 25 MCG IV PUSH ×8 (14:35→15:08)
[2024-11-21] MEDS: CELECOXIB 200 MG CAPSULE PO (15:50)
[2024-11-21] MEDS: ONDANSETRON INJ 4 MG/2 ML VIAL IV PUSH (15:52)
== END 2024-11-21 16:37 | disposition home or self-care (01) ==
PROVIDERS: PCP Family Medicine; Visit Provider Orthopaedic Surgery
PROC: (CPT 25575; principal; 2024-11-21 13:00)
DX: S52.572A Other intraarticular fracture of lower end of left radius, initial encounter for closed fracture (principal); S52.612A Displaced fracture of left ulna styloid process, initial encounter for closed fracture; W01.0XXA Fall on same level from slipping, tripping and stumbling without subsequent striking against object, initial encounter; Z87.891 Personal history of nicotine dependence
CPT/HCPCS: 25608; 99199; A9270; C1713; J0690; J1100; J2003; J2250; J2405; J2704; J3010; J7120